=== PATIENT | female | born 1955 | race Caucasian/White ===

== ENCOUNTER 2020-05-08 11:28 | Inpatient (IN) | payer MEDICARE ==
[2020-05-08] MEDS ORDERED: Ondansetron 4 MG/2 ML SDV IVPUSH ONE (11:52)
[2020-05-08] MEDS ORDERED: Ketorolac 30 MG/ML SDV IVPUSH ONE (11:52)
[2020-05-08] MEDS ORDERED: Morphine 2 MG/ML SYRINGE IVPUSH ONE ×2 (11:52→15:26)
[2020-05-08] MEDS ORDERED: Sodium Chloride 0.9% 1,000 ML IV SCH (12:00)
[2020-05-08] MEDS ORDERED: Iopamidol 755 Mg/ML 100 ML Bottle IV ONE (13:33)
--- NOTE | 2020-05-08 14:01 | CR ---
INDICATION: Cough, dyspnea. CHEST ONE VIEW: Portable AP upright view of the chest was obtained 05/08/20 - no comparisons. The heart was unremarkable in appearance. The aorta is slightly tortuous. Overlying EKG leads are noted. A definite active infiltrate or effusion was not identified. IMPRESSION: No acute process. The report was given by phone to Dr. Sawyer soon after the examination was completed. [facility]
[2020-05-08] MEDS ORDERED: Ketorolac 30 MG/ML SDV IVPUSH STA (15:26)
[2020-05-08] MEDS: Sodium Chloride 0.9% 10 ML Syringe FLUSH PRN ×2 (15:49→15:57)
[2020-05-08] MEDS ORDERED: metroNIDAZOLE/Normal Saline 500 MG in Premix Bag 1 BAG IV ONE (16:12)
[2020-05-08] MEDS ORDERED: Ciprofloxacin in D5W 400 MG in Premix Bag 1 BAG IV ONE ×2 (16:12)
--- NOTE | 2020-05-08 17:19 | CT ---
INDICATION: Left lower quadrant abdominal and suprapubic pain. CT ABDOMEN AND PELVIS WITH CONTRAST: Spiral 3.75 mm axial sections were obtained through the abdomen and pelvis with 87 cc Isovue-370 at 2 cc per second with 100 second delay 05/08/20 - no comparisons. Total exam DLP was 818.83 mGy.cm. The lower lung huang and pleural spaces visualized showed evidence of emphysematous changes, but no definite active infiltrate or effusion, or mass lesions. The heart appeared normal in size. No pericardial effusion was seen. The liver appeared normal. Clips compatible with cholecystectomy are noted. Common bile duct was dilated as expected for post-cholecystectomy patient, but most likely normal. Adrenal glands and kidneys appeared essentially normal except for a probable tiny cyst in the medial upper pole cortex of the right kidney, although the lesion is too small to be definitive as to its nature. The spleen and for the most part the pancreas appear to be normal. There were, however, some calcification in the area of the pancreatic head and body which could be on the basis of previous pancreatitis and should be correlated clinically. No definite retroperitoneal mass was seen. Calcifications were noted in the abdominal aorta, superior mesenteric artery, iliac and left femoral arteries. The uterus is absent compatible with history of its removal. The appendix appeared normal in caliber visualized on coronal images 47 through 59 and did show a tiny appendicolith within its distal aspect. No evidence of free air was identified. There are multiple loops of dilated jejunum in the left upper quadrant with at least one loop of more distal small bowel - proximal ileum or distal jejunum in the right mid abdomen. At the distal portion of at least one of the loops of jejunum there is an appearance of thickening of the wall of the bowel raising question of an inflammatory process. There are a few additional loops of thick walled small bowel in the lower mid abdomen - upper pelvis raising question of an inflammatory process or other etiology. A process such as Crohn's disease would be a consideration as this appears to be skipping areas of the bowel. The colon showed no evidence of an obstructive process with stool including in the area of the rectosigmoid and rectum. A moderate dextroconcave scoliosis of the lumbar spine is noted. Severe degenerative disk disease and moderate to moderately severe hypertrophic degenerative changes are noted at L2-3, L3-4, with partial fusions of the L1-2 vertebral bodies, and relative kyphosis centered at the L1-2 level. No additional mass lesions, organomegaly, or free fluid collections were identified in the abdomen or pelvis. IMPRESSION: 1. Dilated loops of jejunum and possibly up to the level of proximal ileum with thickened wall bowel loops involving the small bowel extending into the mid abdomen - upper mid pelvis with the most dilated loops of small bowel in the jejunal area in the left upper quadrant . Significant thickening of the wall of a loop of bowel in the upper mid pelvis is noted. The more distal bowel appears relatively normal in caliber with gas and stool throughout the colon. A process such as gastroenteritis of severe nature or possibly Crohn's disease would be considerations. The possibility of an early mechanical obstruction or partial mechanical obstruction is difficult to entirely exclude at the level of the mid to distal small bowel. Barium study may be helpful for further evaluation depending upon clinical correlation. 2. Post cholecystectomy. 3. Scoliosis. 4. Degenerative changes and disk disease upper middle lumbar spine. 5. ASD. Report was called to Dr. Sawyer at 1455 hours. [facility]
[2020-05-08] MEDS ORDERED: Ondansetron 4 MG/2 ML SDV IV PRN (18:29)
[2020-05-08] MEDS ORDERED: metroNIDAZOLE/Normal Saline 500 MG in Premix Bag 1 BAG IV SCH (18:45)
[2020-05-08] MEDS ORDERED: Ciprofloxacin in D5W 400 MG in Premix Bag 1 BAG IV SCH ×4 (19:00)
[2020-05-08] MEDS ORDERED: Nitroglycerin 0.4 MG Tab.SL SL PRN (21:29)
[2020-05-08] MEDS ORDERED: Cyclobenzaprine 10 MG Tab PO PRN (21:29)
[2020-05-08] MEDS: Sodium Chloride 0.9% 1,000 ML IV SCH (21:29)
[2020-05-08] MEDS ORDERED: Mirtazapine 30 MG Tab PO SCH (22:15)
[2020-05-08] MEDS: atorvaSTATin 10 MG Tab PO SCH (22:48)
[2020-05-08] MEDS: ClonazePAM 0.5 MG Tab PO SCH (22:49)
[2020-05-08] MEDS: carBAMazepine 200 MG Tab PO SCH (23:05)
[2020-05-08] MEDS ORDERED: Nicotine 14 MG/24 Hr Patch TRDERM SCH (23:15)
[2020-05-09] MEDS: traZODone 100 MG Tab PO SCH ×2 (00:07→20:45)
[2020-05-09] MEDS: metroNIDAZOLE/Normal Saline 500 MG in Premix Bag 1 BAG IV SCH ×3 (01:35→17:03)
[2020-05-09] MEDS: Morphine 2 MG/ML SYRINGE IVPUSH PRN ×2 (05:38→13:08)
[2020-05-09] MEDS: Sodium Chloride 0.9% 1,000 ML IV SCH ×2 (05:58→16:15)
[2020-05-09] MEDS: Ciprofloxacin in D5W 400 MG in Premix Bag 1 BAG IV SCH ×4 (05:59→18:07)
--- NOTE | 2020-05-09 08:08 | PCM.HP.2 ---
H&P History of Present Illness - General Date of Service: 05/09/20 Admit Problem/Dx: Admission Diagnosis/Problem Admission Diagnosis/Problem Abdominal pain Source of Information: Patient History Limitations: Reports: No Limitations - History of Present Illness Initial Comments - Free Text/Narative: Christal is a 65-year-old female who complains of severe left quadrant abdominal pain. The symptoms are gone on for several days but worse in the last 2. Associated with the diarrhea and vomiting initially. She has no fever or urinary symptoms. She has a history of tobacco abuse,Mental illness,but otherwise previously healthy. Surgically, she sat cholecystectomy, 2 hernia repairs in the previous small bowel obstruction. She had a colonoscopy several years ago that showed polyps that were benign. Abdominal privy to that report. Middle Abdominal Pain Score (Numeric/FACES): 5 low mid back, chronic Pain Score (Numeric/FACES): 5 - Related Data Allergies/Adverse Reactions: Allergies Allergy/AdvReac Type Severity Reaction Status Date / Time Penicillins Allergy Swollen Verified 05/08/20 11:47 Tongue Home Medications: Home Meds ClonazePAM [KlonoPIN] 0.5 mg PO BEDTIME 05/08/20 [History] Cyclobenzaprine [Flexeril] 10 mg PO TID PRN 05/08/20 [History] Mirtazapine 45 mg PO BEDTIME 05/08/20 [History] Nitroglycerin 0.4 mg SL ASDIRECTED PRN 05/08/20 [History] Umeclidinium Arcadia [Incruse Ellipta*] 62.5 mcg IH DAILY 05/08/20 [History] atorvaSTATin [Lipitor] 5 mg PO BEDTIME 05/08/20 [History] carBAMazepine [Carbamazepine] 600 mg PO BEDTIME 05/08/20 [History] traZODone 100 mg PO BEDTIME 05/08/20 [History] Albuterol [Ventolin HFA] 2 puff PO Q6H PRN 05/09/20 [History] Fluticasone Propionate [Flonase] 2 spray NASBOTH DAILY 05/09/20 [History] Levothyroxine 150 mcg PO MOTUWETHFRSA 05/09/20 [History] Past Medical History HEENT History: Reports: Impaired Vision Other HEENT History: glasses Cardiovascular History: Reports: High Cholesterol Respiratory History: Reports: Asthma, Bronchitis, Recurrent, COPD Gastrointestinal History: Reports: Bowel Obstruction, Cholelithiasis, GERD Other Gastrointestinal History: pancreatitis MANAGER CONFIGURATION History: Reports: Other OB/BYN History: Musculoskeletal History: Reports: Arthritis, Fibromyalgia, Other (See Below) Other Musculoskeletal History: DJD Other Psychiatric History: hx of bipolar, cont on what she refers to her psych meds at . Endocrine/Metabolic History: Reports: Hypothyroidism - Infectious Disease History Infectious Disease History: Reports: Chicken Pox Other Infectious Disease History: SHINGLES VACCINATION 2019 AT [facility] - Past Surgical History HEENT Surgical History: Reports: Tonsillectomy Respiratory Surgical History: Reports: None GI Surgical History: Reports: Cholecystectomy, Hernia, Abdominal Other GI Surgeries/Procedures: blockage removed Female Surgical History: Reports: Section Musculoskeletal Surgical History: Reports: None Dermatological Surgical History: Reports: None Social & Family History - Tobacco Use Tobacco Use Status *Q: Current Every Day Tobacco User Years of Tobacco use: 25 Packs/Tins Daily: 1.5 Used Tobacco, but Quit: No Second Hand Smoke Exposure: Yes - Caffeine Use Caffeine Use: Reports: Coffee, Soda - Recreational Drug Use Recreational Drug Use: No H&P Review of Systems - Review of Systems: Review Of Systems: Comprehensive ROS is negative, except as noted in HPI. Exam - Exam Exam: See Below - Vital Signs Vital Signs: Last Vital Signs Temp 98.1 F 05/09/20 05:00 Pulse 76 05/09/20 05:00 Resp 20 05/09/20 05:00 BP 120/50 L 05/09/20 05:00 Pulse Ox 91 L 05/09/20 05:00 Weight: 74.616 kg - Exam General: Alert, Oriented, 4 HEENT: PERRLA, Hearing Intact, Mucosa Moist & [place], Nares Patent, Normal Nasal Septum, Posterior Pharynx Clear, Conjunctiva Clear, EOMI, EACs Clear, TMs Clear Neck: Supple, Trachea Midline, 2 Lungs: Clear to Auscultation, Normal Respiratory Effort Cardiovascular: Regular Rate GI/Abdominal Exam: Soft, Tender (Female) Exam: Deferred Rectal (Female) Exam: Deferred Back Exam: Normal Inspection, Full Range of Motion, NT Extremities: Normal Inspection, Normal Range of Motion, Non-Tender, No Pedal Edema, Normal Capillary Refill Skin: Warm, Dry, Intact Neurological: Cranial Nerves Intact, Reflexes Equal Bilateral Neuro Extensive - Mental Status: Alert, Oriented x3, Normal Mood/Affect, Normal Cognition Neuro Extensive - Motor, Sensory, Reflexes: CN II-XII Intact, Normal Gait, Normal Reflexes Psychiatric: Alert, Normal Affect, Normal Mood - Patient Data Lab Results Last 24 hrs: Laboratory Results - last 24 hr 05/08/20 05/08/20 05/08/20 Range/Units 12:15 12:15 12:15 WBC 18.1 H (3.0-10.3) x10-3/uL RBC 5.44 H (3.60-5.20) x10(6)uL Hgb 16.4 H (11.4-15.5) g/dL Hct 49.9 H (34.2-48.2) % MCV 91.7 (76.7-100.5) fL MCH 30.1 (23.9-33.9) pg MCHC 32.8 (31.9-34.8) g/dL RDW 13.2 (12.3-16.5) % Plt Count 244 (151-488) x10(3)uL MPV 7.6 (7.1-12.4) fL Neut % (Auto) (30.8-76.2) % Lymph % (Auto) (18.4-52.1) % [place] % (Auto) (4.4-15.7) % Eos % (Auto) (0.6-8.1) % Baso % (Auto) (0.2-1.5) % Neut # (Auto) (1.5-6.3) x10-3/uL Lymph # (Auto) (1.0-4.4) x10-3/uL [place] # (Auto) (0.3-1.0) x10-3/uL Eos # (Auto) (0.0-0.8) x10-3/uL Baso # (Auto) (0.0-0.1) x10-3/uL Add Manual Diff Yes Neutrophils % (Manual) 77 (46-82) % Band Neutrophils % 5 (0-6) % Lymphocytes % (Manual) 14 (13-37) % Monocytes % (Manual) 4 (4-12) % Sodium 134 L (135-145) mmol/L Potassium 4.1 (3.5-5.3) mmol/L Chloride 96 L (100-110) mmol/L Carbon Dioxide 25 (21-32) mmol/L BUN 12 (7-18) mg/dL Creatinine 0.8 (0.55-1.02) mg/dL Est Cr Clr Drug Dosing 68.18 mL/min Estimated GFR (MDRD) > 60 (>60) BUN/Creatinine Ratio 15.0 (9-20) Glucose 119 H (80-116) mg/dL Lactic Acid (0.4-2.0) mmol/L Calcium 9.3 (8.6-10.2) mg/dL Total Bilirubin 0.4 (0.1-1.3) mg/dL AST 28 H (5-25) IU/L ALT 33 (12-36) U/L Alkaline Phosphatase 146 H (56-112) IU/L Troponin I 5.7 (4.0-60.3) pg/mL Total Protein 8.0 (6.0-8.0) g/dL Albumin 4.1 (3.2-4.6) g/dL Globulin 3.9 g/dL Albumin/Globulin Ratio 1.1 Amylase 55 (25-115) U/L Lipase 88 (73-393) U/L Urine Color (YELLOW) Urine Appearance (CLEAR) Urine pH (5.0-6.5) Ur Specific [place] (1.010-1.025) Urine Protein (NEGATIVE) mg/dL Urine Glucose (UA) (NORMAL) mg/dL Urine Ketones (NEGATIVE) mg/dL Urine Occult Blood (NEGATIVE) Urine Nitrite (NEGATIVE) Urine Bilirubin (NEGATIVE) Urine Urobilinogen (NEGATIVE) mg/dL Ur Leukocyte Esterase (NEGATIVE) Urine RBC (0-5) Urine WBC (0-5) Ur Squamous Epith Cells (NS,R,O) Urine Bacteria (NS) SARS-CoV-2 RNA (MARY) (NEGATIVE) 05/08/20 05/08/20 05/08/20 Range/Units 12:20 16:30 16:30 WBC (3.0-10.3) x10-3/uL RBC (3.60-5.20) x10(6)uL Hgb (11.4-15.5) g/dL Hct (34.2-48.2) % MCV (76.7-100.5) fL MCH (23.9-33.9) pg MCHC (31.9-34.8) g/dL RDW (12.3-16.5) % Plt Count (151-488) x10(3)uL MPV (7.1-12.4) fL Neut % (Auto) (30.8-76.2) % Lymph % (Auto) (18.4-52.1) % [place] % (Auto) (4.4-15.7) % Eos % (Auto) (0.6-8.1) % Baso % (Auto) (0.2-1.5) % Neut # (Auto) (1.5-6.3) x10-3/uL Lymph # (Auto) (1.0-4.4) x10-3/uL [place] # (Auto) (0.3-1.0) x10-3/uL Eos # (Auto) (0.0-0.8) x10-3/uL Baso # (Auto) (0.0-0.1) x10-3/uL Add Manual Diff Neutrophils % (Manual) (46-82) % Band Neutrophils % (0-6) % Lymphocytes % (Manual) (13-37) % Monocytes % (Manual) (4-12) % Sodium (135-145) mmol/L Potassium (3.5-5.3) mmol/L Chloride (100-110) mmol/L Carbon Dioxide (21-32) mmol/L BUN (7-18) mg/dL Creatinine (0.55-1.02) mg/dL Est Cr Clr Drug Dosing mL/min Estimated GFR (MDRD) (>60) BUN/Creatinine Ratio (9-20) Glucose (80-116) mg/dL Lactic Acid 0.5 (0.4-2.0) mmol/L Calcium (8.6-10.2) mg/dL Total Bilirubin (0.1-1.3) mg/dL AST (5-25) IU/L ALT (12-36) U/L Alkaline Phosphatase (56-112) IU/L Troponin I (4.0-60.3) pg/mL Total Protein (6.0-8.0) g/dL Albumin (3.2-4.6) g/dL Globulin g/dL Albumin/Globulin Ratio Amylase (25-115) U/L Lipase (73-393) U/L Urine Color Yellow (YELLOW) Urine Appearance Slightly cloudy (CLEAR) Urine pH 5.0 (5.0-6.5) Ur Specific [place] 1.030 H (1.010-1.025) Urine Protein Negative (NEGATIVE) mg/dL Urine Glucose (UA) Normal (NORMAL) mg/dL Urine Ketones 50 H (NEGATIVE) mg/dL Urine Occult Blood Negative (NEGATIVE) Urine Nitrite Negative (NEGATIVE) Urine Bilirubin Small H (NEGATIVE) Urine Urobilinogen 1 H (NEGATIVE) mg/dL Ur Leukocyte Esterase Negative (NEGATIVE) Urine RBC 0-5 (0-5) Urine WBC 0-5 (0-5) Ur Squamous Epith Cells Few H (NS,R,O) Urine Bacteria Few H (NS) SARS-CoV-2 RNA (MARY) Negative (NEGATIVE) 05/09/20 05/09/20 Range/Units 06:30 06:30 WBC 6.5 (3.0-10.3) x10-3/uL RBC 4.21 (3.60-5.20) x10(6)uL Hgb 12.7 D (11.4-15.5) g/dL Hct 39.2 D (34.2-48.2) % MCV 93.0 (76.7-100.5) fL MCH 30.2 (23.9-33.9) pg MCHC 32.5 (31.9-34.8) g/dL RDW 13.3 (12.3-16.5) % Plt Count 228 (151-488) x10(3)uL MPV 7.3 (7.1-12.4) fL Neut % (Auto) 65.6 (30.8-76.2) % Lymph % (Auto) 25.9 (18.4-52.1) % [place] % (Auto) 5.7 (4.4-15.7) % Eos % (Auto) 1.7 (0.6-8.1) % Baso % (Auto) 1.1 (0.2-1.5) % Neut # (Auto) 4.3 (1.5-6.3) x10-3/uL Lymph # (Auto) 1.7 (1.0-4.4) x10-3/uL [place] # (Auto) 0.4 (0.3-1.0) x10-3/uL Eos # (Auto) 0.1 (0.0-0.8) x10-3/uL Baso # (Auto) 0.1 (0.0-0.1) x10-3/uL Add Manual Diff Neutrophils % (Manual) (46-82) % Band Neutrophils % (0-6) % Lymphocytes % (Manual) (13-37) % Monocytes % (Manual) (4-12) % Sodium 139 (135-145) mmol/L Potassium 3.5 (3.5-5.3) mmol/L Chloride 104 D (100-110) mmol/L Carbon Dioxide 25 (21-32) mmol/L BUN 9 (7-18) mg/dL Creatinine 0.6 (0.55-1.02) mg/dL Est Cr Clr Drug Dosing 90.90 mL/min Estimated GFR (MDRD) > 60 (>60) BUN/Creatinine Ratio 15.0 (9-20) Glucose 102 (80-116) mg/dL Lactic Acid (0.4-2.0) mmol/L Calcium 7.5 L (8.6-10.2) mg/dL Total Bilirubin (0.1-1.3) mg/dL AST (5-25) IU/L ALT (12-36) U/L Alkaline Phosphatase (56-112) IU/L Troponin I (4.0-60.3) pg/mL Total Protein (6.0-8.0) g/dL Albumin (3.2-4.6) g/dL Globulin g/dL Albumin/Globulin Ratio Amylase (25-115) U/L Lipase (73-393) U/L Urine Color (YELLOW) Urine Appearance (CLEAR) Urine pH (5.0-6.5) Ur Specific [place] (1.010-1.025) Urine Protein (NEGATIVE) mg/dL Urine Glucose (UA) (NORMAL) mg/dL Urine Ketones (NEGATIVE) mg/dL Urine Occult Blood (NEGATIVE) Urine Nitrite (NEGATIVE) Urine Bilirubin (NEGATIVE) Urine Urobilinogen (NEGATIVE) mg/dL Ur Leukocyte Esterase (NEGATIVE) Urine RBC (0-5) Urine WBC (0-5) Ur Squamous Epith Cells (NS,R,O) Urine Bacteria (NS) SARS-CoV-2 RNA (MARY) (NEGATIVE) Result Diagrams: 05/09/20 06:30 05/09/20 06:30 Stef Results Last 24 hrs: Microbiology 05/08/20 16:30 Anaerobic Blood Culture - Final Blood - Venous 05/08/20 16:35 Anaerobic Blood Culture - Final Blood - Venous - Lab Draw Sepsis Event Note - Evaluation Sepsis Screening Result: No Definite Risk - Focused Exam Vital Signs: Vital Signs Temp Pulse Resp BP Pulse Ox 05/09/20 05:00 98.1 F 76 20 120/50 L 91 L 05/09/20 00:00 98.2 F 72 20 114/55 L 90 L - Problem List (1) Abdominal pain SNOMED Code(s): 35043453 ICD Code: R10.9 - UNSPECIFIED ABDOMINAL PAIN Status: Acute Current Visit: Yes Qualifiers: Abdominal location: generalized Qualified Code(s): R10.84 - Generalized abdominal pain (2) Tobacco abuse SNOMED Code(s): 988084246 ICD Code: Z72.0 - TOBACCO USE Status: Acute Current Visit: Yes (3) HLD (hyperlipidemia) SNOMED Code(s): 87707196 ICD Code: E78.5 - HYPERLIPIDEMIA, UNSPECIFIED Status: Acute Current Visit: Yes Qualifiers: Hyperlipidemia type: unspecified Qualified Code(s): E78.5 - Hyperlipidemia, unspecified (4) Bipolar 2 disorder SNOMED Code(s): 11305645 ICD Code: F31.81 - BIPOLAR II DISORDER Status: Acute Current Visit: Yes (5) COPD (chronic obstructive pulmonary disease) SNOMED Code(s): 01875768 ICD Code: J44.9 - CHRONIC OBSTRUCTIVE PULMONARY DISEASE, UNSPECIFIED Status: Acute Current Visit: Yes Problem List Initiated/Reviewed/Updated: Yes Orders Last 24hrs: Active Orders 24 hr Category Date Time Status Patient Status [ADT] Routine ADT 05/08/20 18:29 Active Influenza Vaccine Charge [RC] .DISCHARGE Care 05/08/20 19:58 Active Oxygen Therapy [RC] PRN Care 05/08/20 18:29 Active Pulse Oximetry [RC] PRN Care 05/08/20 18:34 Active Up With Assistance [RC] ASDIRECTED Care 05/08/20 18:29 Active VTE/DVT Education [RC] Per Unit Routine Care 05/08/20 18:29 Active Vital Signs [RC] Q4H Care 05/08/20 18:29 Active Heart Healthy Diet [DIET] Diet 05/08/20 Dinner Ordered CULTURE BLOOD [BC] Urgent Lab 05/08/20 16:30 Results CULTURE BLOOD [BC] Urgent Lab 05/08/20 16:35 Results Ciprofloxacin in D5W [Cipro in D5W 400 MG/200 ML] 400 Med 05/09/20 06:30 Active mg Premix Bag 1 bag IV Q12H ClonazePAM [KlonoPIN] Med 05/08/20 22:15 Active 0.5 mg PO BEDTIME Cyclobenzaprine [Flexeril] Med 05/08/20 21:29 Active 10 mg PO TID PRN Levothyroxine Med 05/09/20 09:00 Active 150 mcg PO [id number]@0900 Mirtazapine [Remeron] Med 05/09/20 21:00 Active 45 mg PO BEDTIME Morphine Med 05/08/20 18:29 Active 2 mg IVPUSH Q2H PRN Nicotine [Habitrol] Med 05/09/20 21:00 Active 14 mg TRDERM BEDTIME Nitroglycerin [Nitrostat] Med 05/08/20 21:29 Active 0.4 mg SL ASDIRECTED PRN Ondansetron [Zofran] Med 05/08/20 18:29 Active 4 mg IV Q4H PRN Sodium Chloride 0.9% [Normal Saline] 1,000 ml Med 05/08/20 12:00 Active IV ASDIRECTED Sodium Chloride 0.9% [Normal Saline] 1,000 ml Med 05/08/20 18:30 Active IV ASDIRECTED Sodium Chloride 0.9% [Saline Flush] Med 05/08/20 11:50 Active 10 ml FLUSH ASDIRECTED PRN Tiotropium Arcadia [Spiriva Respimat] Med 05/09/20 09:00 Active 0 gm INH DAILY atorvaSTATin [Lipitor] Med 05/08/20 22:15 Active 5 mg PO BEDTIME carBAMazepine [TEGretol Tab] Med 05/08/20 22:15 Active 600 mg PO BEDTIME metroNIDAZOLE/Normal Saline [Flagyl 500 MG in NS 100 ML Med 05/09/20 01:00 Active ] 500 mg Premix Bag 1 bag IV Q8H traZODone Med 05/08/20 22:15 Active 100 mg PO BEDTIME Blood Culture x2 Reflex Set [OM.PC] Urgent Oth 05/08/20 16:12 Ordered Saline Lock Insert [OM.PC] Routine Oth 05/08/20 11:50 Ordered Sequential Compression Device [OM.PC] Per Unit Routine Oth 05/08/20 18:34 Ordered Resuscitation Status Routine Resus Stat 05/08/20 18:29 Ordered EKG 12 Lead [EK] Routine Ther 05/08/20 11:50 Ordered Medication Orders Atorvastatin Calcium (Lipitor) 5 mg PO BEDTIME REPLACED BY [facility] Last Admin: 05/08/20 22:48 Dose: 5 mg Documented by: CHENCHO Carbamazepine (Tegretol Tab) 600 mg PO BEDTIME REPLACED BY [facility] Last Admin: 05/08/20 23:05 Dose: 600 mg Documented by: CHENCHO Clonazepam (Klonopin) 0.5 mg PO BEDTIME REPLACED BY [facility] Last Admin: 05/08/20 22:49 Dose: 0.5 mg Documented by: CHENCHO Cyclobenzaprine HCl (Flexeril) 10 mg PO TID PRN PRN Reason: Pain Sodium Chloride (Normal Saline) 1,000 mls @ 999 mls/hr IV ASDIRECTED REPLACED BY [facility] Last Admin: 05/08/20 12:14 Dose: 999 mls/hr Documented by: BENEAMI Sodium Chloride (Normal Saline) 1,000 mls @ 125 mls/hr IV ASDIRECTED REPLACED BY [facility] Last Admin: 05/09/20 05:58 Dose: 125 mls/hr Documented by: Infusion: 05/09/20 05:29 Dose: 125 mls/hr Documented by: Admin: 05/08/20 21:29 Dose: 125 mls/hr Documented by: CHENCHO Ciprofloxacin/Dextrose 400 mg/ (Premix) 200 mls @ 200 mls/hr IV Q12H REPLACED BY [facility] Last Admin: 05/09/20 05:59 Dose: 200 mls/hr Documented by: CHENCHO Metronidazole 500 mg/ Premix 100 mls @ 100 mls/hr IV Q8H REPLACED BY [facility] Last Admin: 05/09/20 01:35 Dose: 100 mls/hr Documented by: CHENCHO Levothyroxine Sodium (Levothyroxine) 150 mcg PO [id number]@0900 REPLACED BY [facility] Mirtazapine (Remeron) 45 mg PO BEDTIME ROBERT Morphine Sulfate (Morphine) 2 mg IVPUSH Q2H PRN PRN Reason: Pain Last Admin: 05/09/20 05:38 Dose: 2 mg Documented by: CHENCHO Nicotine (Habitrol) 14 mg TRDERM BEDTIME ROBERT Nitroglycerin (Nitrostat) 0.4 mg SL ASDIRECTED PRN PRN Reason: Chest Pain Ondansetron HCl (Zofran) 4 mg IV Q4H PRN PRN Reason: Nausea/Vomiting Sodium Chloride (Saline Flush) 10 ml FLUSH ASDIRECTED PRN PRN Reason: Keep Vein Open Last Admin: 05/08/20 15:57 Dose: 10 ml Documented by: Admin: 05/08/20 15:49 Dose: 10 ml Documented by: TIN Tiotropium Arcadia (Spiriva Respimat) 0 gm INH DAILY ROBERT Trazodone HCl (Trazodone) 100 mg PO BEDTIME ROBERT Last Admin: 05/09/20 00:07 Dose: 100 mg Documented by: CHENCHO Assessment/Plan Comment:: Patient needed some morphine overnight. I will change it to Toradol as needed as place her to be nothing by mouth, and consult Dr. Breen for an opinion. Repeat some labs in
[2020-05-09] MEDS ORDERED: FLU VACC QS2020-21(6MOS UP)/PF 60 MCG/0.5 ML SYRINGE IM ONE (08:37)
[2020-05-09] MEDS: Tiotropium Bromide 4 GM Inhalation Spray (2.5mcg/1 dose; 10 doses) INH SCH (08:52)
[2020-05-09] MEDS: Levothyroxine 150 MCG Tab PO SCH (08:54)
--- NOTE | 2020-05-09 12:20 | EDM.PDOC ---
ED HPI GENERAL MEDICAL PROBLEM - General Chief Complaint: Abdominal Pain Time Seen by Provider: 05/08/20 11:35 Source of Information: Reports: Patient History Limitations: Reports: No Limitations - History of Present Illness INITIAL COMMENTS - FREE TEXT/NARRATIVE: Patient presented to the ED because of abdominal pain which started 2 days ago with associated N/V/D. The pain is sharp and cramping over the LLQ and suprapubic area. There is no fever/chills/cough or cold symptoms. She also c/o pleuritic pain and some dyspnea which is nothing more than ususal because of her COPD. Middle Abdominal Pain Score (Numeric/FACES): 5 low mid back, chronic Pain Score (Numeric/FACES): 5 ACROSS ALL ABDOMEN Pain Score (Numeric/FACES): 7 - Related Data Allergies Allergy/AdvReac Type Severity Reaction Status Date / Time Penicillins Allergy Swollen Verified 05/08/20 11:47 Tongue Home Meds: Home Meds ClonazePAM [KlonoPIN] 0.5 mg PO BEDTIME 05/08/20 [History] Cyclobenzaprine [Flexeril] 10 mg PO TID PRN 05/08/20 [History] Mirtazapine 45 mg PO BEDTIME 05/08/20 [History] Nitroglycerin 0.4 mg SL ASDIRECTED PRN 05/08/20 [History] Umeclidinium [place] [Incruse Ellipta*] 62.5 mcg IH DAILY 05/08/20 [History] atorvaSTATin [Lipitor] 5 mg PO BEDTIME 05/08/20 [History] carBAMazepine [Carbamazepine] 600 mg PO BEDTIME 05/08/20 [History] traZODone 100 mg PO BEDTIME 05/08/20 [History] Albuterol [Ventolin HFA] 2 puff PO Q6H PRN 05/09/20 [History] Fluticasone Propionate [Flonase] 2 spray NASBOTH DAILY 05/09/20 [History] Levothyroxine 150 mcg PO MOTUWETHFRSA 05/09/20 [History] Past Medical History HEENT History: Reports: Impaired Vision Other HEENT History: glasses Cardiovascular History: Reports: High Cholesterol Respiratory History: Reports: Asthma, Bronchitis, Recurrent, COPD Gastrointestinal History: Reports: Bowel Obstruction, Cholelithiasis, GERD Other Gastrointestinal History: pancreatitis [employer]END[employer] History: Reports: Other [employer] ATT[employer]ANT History: Musculoskeletal History: Reports: Arthritis, Fibromyalgia, Other (See Below) Other Musculoskeletal History: DJD Other Psychiatric History: hx of bipolar, cont on what she refers to her psych meds at . Endocrine/Metabolic History: Reports: Hypothyroidism - Infectious Disease History Infectious Disease History: Reports: Chicken Pox Other Infectious Disease History: SHINGLES VACCINATION 2019 AT [facility] - Past Surgical History HEENT Surgical History: Reports: Tonsillectomy Respiratory Surgical History: Reports: None GI Surgical History: Reports: Cholecystectomy, Hernia, Abdominal Other GI Surgeries/Procedures: blockage removed Female Surgical History: Reports: Section Musculoskeletal Surgical History: Reports: None Dermatological Surgical History: Reports: None Social & Family History - Tobacco Use Tobacco Use Status *Q: Current Every Day Tobacco User Years of Tobacco use: 25 Packs/Tins Daily: 1.5 Used Tobacco, but Quit: No Second Hand Smoke Exposure: Yes - Caffeine Use Caffeine Use: Reports: Coffee, Soda - Recreational Drug Use Recreational Drug Use: No ED ROS GENERAL - Review of Systems Review Of Systems: See Below Constitutional: Reports: No Symptoms HEENT: Reports: No Symptoms Respiratory: Reports: Shortness of Breath, Wheezing, Cough Cardiovascular: Reports: No Symptoms Endocrine: Reports: No Symptoms GI/Abdominal: Reports: Abdominal Pain, Nausea, Vomiting : Reports: No Symptoms, Discharge Musculoskeletal: Reports: No Symptoms, Neck Pain, Shoulder Pain Skin: Reports: No Symptoms, Cyanosis, Jaundice Neurological: Reports: No Symptoms, Confusion Psychiatric: Reports: No Symptoms, Agitation ED EXAM, GI/ABD - Physical Exam Exam: See Below Exam Limited By: No Limitations General Appearance: Alert, No Apparent Distress Ears: Normal External Exam, Normal Canal, Hearing Grossly Normal Nose: Normal Inspection, Normal Mucosa Throat/Mouth: Normal Inspection, Normal Lips, Normal Teeth Head: Atraumatic, Normocephalic Neck: Normal Inspection, Supple, Non-Tender, Full Range of Motion Respiratory/Chest: No Respiratory Distress, Lungs Clear, Normal Breath Sounds Cardiovascular: Normal Peripheral Pulses, Regular Rate, Rhythm, No Edema, No Gallop GI/Abdominal Exam: Soft, No Organomegaly, Other (tenderness over the LLQ and suprapubic area) Back Exam: Normal Inspection, Full Range of Motion Extremities: Normal Inspection, Normal Range of Motion Course - Vital Signs Text/Narrative:: Labs/EKG/CXR/CT abd-pelvis was discussed with patient NS 1 L bolus Toradol 15 mg IV Morphine 2 mg IV Zofran 4 mg IV Cipro 400 mg IV Flagyl 500 mg IV Last Recorded V/S: Last Vital Signs Temp 36.7 C 05/09/20 07:25 Pulse 81 05/09/20 07:25 Resp 18 05/09/20 07:25 BP 111/63 05/09/20 07:25 Pulse Ox 85 L 05/09/20 07:25 - Orders/Labs/Meds Orders: Active Orders 24 hr Category Date Time Status Patient Status [ADT] Routine ADT 05/08/20 18:29 Active Oxygen Therapy [RC] PRN Care 05/08/20 18:29 Active Pulse Oximetry [RC] PRN Care 05/08/20 18:34 Active Up With Assistance [RC] ASDIRECTED Care 05/08/20 18:29 Active VTE/DVT Education [RC] Per Unit Routine Care 05/08/20 18:29 Active Vital Signs [RC] Q4H Care 05/08/20 18:29 Active CULTURE BLOOD [BC] Urgent Lab 05/08/20 16:30 Results CULTURE BLOOD [BC] Urgent Lab 05/08/20 16:35 Results Ciprofloxacin in D5W [Cipro in D5W 400 MG/200 ML] 400 Med 05/09/20 06:30 Active mg Premix Bag 1 bag IV Q12H Morphine Med 05/08/20 18:29 Active 2 mg IVPUSH Q2H PRN Ondansetron [Zofran] Med 05/08/20 18:29 Active 4 mg IV Q4H PRN Sodium Chloride 0.9% [Normal Saline] 1,000 ml Med 05/08/20 12:00 Active IV ASDIRECTED Sodium Chloride 0.9% [Normal Saline] 1,000 ml Med 05/08/20 18:30 Active IV ASDIRECTED Sodium Chloride 0.9% [Saline Flush] Med 05/08/20 11:50 Active 10 ml FLUSH ASDIRECTED PRN Blood Culture x2 Reflex Set [OM.PC] Urgent Oth 05/08/20 16:12 Ordered Saline Lock Insert [OM.PC] Routine Oth 05/08/20 11:50 Ordered Sequential Compression Device [OM.PC] Per Unit Routine Oth 05/08/20 18:34 Ordered EKG 12 Lead [EK] Routine Ther 05/08/20 11:50 Ordered Medication Orders Atorvastatin Calcium (Lipitor) 5 mg PO BEDTIME [facility] Last Admin: 05/08/20 22:48 Dose: 5 mg Documented by: CHENCHO Carbamazepine (Tegretol Tab) 600 mg PO BEDTIME [facility] Last Admin: 05/08/20 23:05 Dose: 600 mg Documented by: CHENCHO Clonazepam (Klonopin) 0.5 mg PO BEDTIME [facility] Last Admin: 05/08/20 22:49 Dose: 0.5 mg Documented by: CHENCHO Cyclobenzaprine HCl (Flexeril) 10 mg PO TID PRN PRN Reason: Pain Sodium Chloride (Normal Saline) 1,000 mls @ 999 mls/hr IV ASDIRECTED [facility] Last Admin: 05/08/20 12:14 Dose: 999 mls/hr Documented by: STEFANIA Sodium Chloride (Normal Saline) 1,000 mls @ 125 mls/hr IV ASDIRECTED [facility] Last Admin: 05/09/20 05:58 Dose: 125 mls/hr Documented by: Infusion: 05/09/20 05:29 Dose: 125 mls/hr Documented by: Admin: 05/08/20 21:29 Dose: 125 mls/hr Documented by: CHENCHO Ciprofloxacin/Dextrose 400 mg/ (Premix) 200 mls @ 200 mls/hr IV Q12H [facility] Last Admin: 05/09/20 05:59 Dose: 200 mls/hr Documented by: CHENCHO Metronidazole 500 mg/ Premix 100 mls @ 100 mls/hr IV Q8H [facility] Last Admin: 05/09/20 08:43 Dose: 100 mls/hr Documented by: JOSE G Infusion: 05/09/20 02:35 Dose: 100 mls/hr Documented by: JOSE G Admin: 05/09/20 01:35 Dose: 100 mls/hr Documented by: CHENCHO Levothyroxine Sodium (Levothyroxine) 150 mcg PO [id number] [facility] Last Admin: 05/09/20 08:54 Dose: 150 mcg Documented by: JOSE G Mirtazapine (Remeron) 45 mg PO BEDTIME [facility] Morphine Sulfate (Morphine) 2 mg IVPUSH Q2H PRN PRN Reason: Pain Last Admin: 05/09/20 05:38 Dose: 2 mg Documented by: CHENCHO Nicotine (Habitrol) 14 mg TRDERM BEDTIME [facility] Nitroglycerin (Nitrostat) 0.4 mg SL ASDIRECTED PRN PRN Reason: Chest Pain Ondansetron HCl (Zofran) 4 mg IV Q4H PRN PRN Reason: Nausea/Vomiting Sodium Chloride (Saline Flush) 10 ml FLUSH ASDIRECTED PRN PRN Reason: Keep Vein Open Last Admin: 05/08/20 15:57 Dose: 10 ml Documented by: Admin: 05/08/20 15:49 Dose: 10 ml Documented by: TIN Tiotropium [place] (Spiriva Respimat) 0 gm INH DAILY [facility] Last Admin: 05/09/20 08:52 Dose: 4 gm Documented by: JOSE G Trazodone HCl (Trazodone) 100 mg PO BEDTIME [facility] Last Admin: 05/09/20 00:07 Dose: 100 mg Documented by: CHENCHO Labs: Laboratory Tests 05/08/20 05/08/20 05/08/20 Range/Units 12:15 12:15 12:15 WBC 18.1 H (3.0-10.3) x10-3/uL RBC 5.44 H (3.60-5.20) x10(6)uL Hgb 16.4 H (11.4-15.5) g/dL Hct 49.9 H (34.2-48.2) % MCV 91.7 (76.7-100.5) fL MCH 30.1 (23.9-33.9) pg MCHC 32.8 (31.9-34.8) g/dL RDW 13.2 (12.3-16.5) % Plt Count 244 (151-488) x10(3)uL MPV 7.6 (7.1-12.4) fL Add Manual Diff Yes Neutrophils % (Manual) 77 (46-82) % Band Neutrophils % 5 (0-6) % Lymphocytes % (Manual) 14 (13-37) % Monocytes % (Manual) 4 (4-12) % Sodium 134 L (135-145) mmol/L Potassium 4.1 (3.5-5.3) mmol/L Chloride 96 L (100-110) mmol/L Carbon Dioxide 25 (21-32) mmol/L BUN 12 (7-18) mg/dL Creatinine 0.8 (0.55-1.02) mg/dL Est Cr Clr Drug Dosing 68.18 mL/min Estimated GFR (MDRD) > 60 (>60) BUN/Creatinine Ratio 15.0 (9-20) Glucose 119 H (80-116) mg/dL Lactic Acid (0.4-2.0) mmol/L Calcium 9.3 (8.6-10.2) mg/dL Total Bilirubin 0.4 (0.1-1.3) mg/dL AST 28 H (5-25) IU/L ALT 33 (12-36) U/L Alkaline Phosphatase 146 H (56-112) IU/L Troponin I 5.7 (4.0-60.3) pg/mL Total Protein 8.0 (6.0-8.0) g/dL Albumin 4.1 (3.2-4.6) g/dL Globulin 3.9 g/dL Albumin/Globulin Ratio 1.1 Amylase 55 (25-115) U/L Lipase 88 (73-393) U/L Urine Color (YELLOW) Urine Appearance (CLEAR) Urine pH (5.0-6.5) Ur Specific [place] (1.010-1.025) Urine Protein (NEGATIVE) mg/dL Urine Glucose (UA) (NORMAL) mg/dL Urine Ketones (NEGATIVE) mg/dL Urine Occult Blood (NEGATIVE) Urine Nitrite (NEGATIVE) Urine Bilirubin (NEGATIVE) Urine Urobilinogen (NEGATIVE) mg/dL Ur Leukocyte Esterase (NEGATIVE) Urine RBC (0-5) Urine WBC (0-5) Ur Squamous Epith Cells (NS,R,O) Urine Bacteria (NS) SARS-CoV-2 RNA (MARY) (NEGATIVE) 05/08/20 05/08/20 05/08/20 Range/Units 12:20 16:30 16:30 WBC (3.0-10.3) x10-3/uL RBC (3.60-5.20) x10(6)uL Hgb (11.4-15.5) g/dL Hct (34.2-48.2) % MCV (76.7-100.5) fL MCH (23.9-33.9) pg MCHC (31.9-34.8) g/dL RDW (12.3-16.5) % Plt Count (151-488) x10(3)uL MPV (7.1-12.4) fL Add Manual Diff Neutrophils % (Manual) (46-82) % Band Neutrophils % (0-6) % Lymphocytes % (Manual) (13-37) % Monocytes % (Manual) (4-12) % Sodium (135-145) mmol/L Potassium (3.5-5.3) mmol/L Chloride (100-110) mmol/L Carbon Dioxide (21-32) mmol/L BUN (7-18) mg/dL Creatinine (0.55-1.02) mg/dL Est Cr Clr Drug Dosing mL/min Estimated GFR (MDRD) (>60) BUN/Creatinine Ratio (9-20) Glucose (80-116) mg/dL Lactic Acid 0.5 (0.4-2.0) mmol/L Calcium (8.6-10.2) mg/dL Total Bilirubin (0.1-1.3) mg/dL AST (5-25) IU/L ALT (12-36) U/L Alkaline Phosphatase (56-112) IU/L Troponin I (4.0-60.3) pg/mL Total Protein (6.0-8.0) g/dL Albumin (3.2-4.6) g/dL Globulin g/dL Albumin/Globulin Ratio Amylase (25-115) U/L Lipase (73-393) U/L Urine Color Yellow (YELLOW) Urine Appearance Slightly cloudy (CLEAR) Urine pH 5.0 (5.0-6.5) Ur Specific [place] 1.030 H (1.010-1.025) Urine Protein Negative (NEGATIVE) mg/dL Urine Glucose (UA) Normal (NORMAL) mg/dL Urine Ketones 50 H (NEGATIVE) mg/dL Urine Occult Blood Negative (NEGATIVE) Urine Nitrite Negative (NEGATIVE) Urine Bilirubin Small H (NEGATIVE) Urine Urobilinogen 1 H (NEGATIVE) mg/dL Ur Leukocyte Esterase Negative (NEGATIVE) Urine RBC 0-5 (0-5) Urine WBC 0-5 (0-5) Ur Squamous Epith Cells Few H (NS,R,O) Urine Bacteria Few H (NS) SARS-CoV-2 RNA (MARY) Negative (NEGATIVE) Meds: Medications Generic Name Dose Route Start Last Admin Trade Name Freq PRN Reason Stop Dose Admin Atorvastatin Calcium 5 mg 05/08/20 22:15 05/08/20 22:48 Lipitor PO 5 mg BEDTIME ROBERT Administration Carbamazepine 600 mg 05/08/20 22:15 05/08/20 23:05 Tegretol Tab PO 600 mg BEDTIME ROBERT Administration Clonazepam 0.5 mg 05/08/20 22:15 05/08/20 22:49 Klonopin PO 0.5 mg BEDTIME ROBERT Administration Cyclobenzaprine HCl 10 mg 05/08/20 21:29 Flexeril PO TID PRN Pain Sodium Chloride 1,000 mls @ 999 mls/hr 05/08/20 12:00 05/08/20 12:14 Normal Saline IV 999 mls/hr ASDIRECTED ROBERT Administration Sodium Chloride 1,000 mls @ 125 mls/hr 05/08/20 18:30 05/09/20 05:58 Normal Saline IV 125 mls/hr ASDIRECTED ROBERT Administration Ciprofloxacin/Dextrose 400 mg/ 200 mls @ 200 mls/hr 05/09/20 06:30 05/09/20 05:59 Premix IV 200 mls/hr Q12H ROBERT Administration Metronidazole 500 mg/ Premix 100 mls @ 100 mls/hr 05/09/20 01:00 05/09/20 08:43 IV 100 mls/hr Q8H ROBERT Administration Levothyroxine Sodium 150 mcg 05/09/20 09:00 05/09/20 08:54 Levothyroxine PO 150 mcg [id number] ROBERT Administration Mirtazapine 45 mg 05/09/20 21:00 Remeron PO BEDTIME ROBERT Morphine Sulfate 2 mg 05/08/20 18:29 05/09/20 05:38 Morphine IVPUSH 2 mg Q2H PRN Administration Pain Nicotine 14 mg 05/09/20 21:00 Habitrol TRDERM BEDTIME ROBERT Nitroglycerin 0.4 mg 05/08/20 21:29 Nitrostat SL ASDIRECTED PRN Chest Pain Ondansetron HCl 4 mg 05/08/20 18:29 Zofran IV Q4H PRN Nausea/Vomiting Sodium Chloride 10 ml 05/08/20 11:50 05/08/20 15:57 Saline Flush FLUSH 10 ml ASDIRECTED PRN Administration Keep Vein Open Tiotropium [place] 0 gm 05/09/20 09:00 05/09/20 08:52 Spiriva Respimat INH 4 gm DAILY ROBERT Administration Trazodone HCl 100 mg 05/08/20 22:15 05/09/20 00:07 Trazodone PO 100 mg BEDTIME [facility]ERT Administration Discontinued Medications Generic Name Dose Route Start Last Admin Trade Name Freq PRN Reason Stop Dose Admin Metronidazole 500 mg/ Premix 100 mls @ 100 mls/hr 05/08/20 16:12 05/08/20 17:05 IV 05/08/20 17:11 100 mls/hr ONETIME ONE Administration Ciprofloxacin/Dextrose 400 mg/ 200 mls @ 200 mls/hr 05/08/20 16:12 05/08/20 18:31 Premix IV 05/08/20 17:11 200 mls/hr ONETIME ONE Administration Ciprofloxacin/Dextrose 400 mg/ 200 mls @ 200 mls/hr 05/08/20 19:00 Premix IV Q12H ROBERT Metronidazole 500 mg/ Premix 100 mls @ 100 mls/hr 05/08/20 18:45 05/08/20 21:26 IV Not Given Q8H ROBERT Ciprofloxacin/Dextrose 400 mg/ 200 mls @ 200 mls/hr 05/08/20 19:00 Premix IV Q12H ROBERT Influenza Virus Vaccine 1 each 05/08/20 19:58 Pharmacy To Dose - Influenza Vaccine IM 05/08/20 19:59 ONETIME ONE Influenza Virus Vaccine 60 mcg 05/08/20 21:00 05/09/20 08:50 Fluad Quad Syringe IM 05/08/20 21:01 Not Given .ONCE ONE Influenza Virus Vaccine Confirm 05/09/20 08:37 05/09/20 08:47 Fluzone Quad Syringe Administered 05/09/20 08:38 60 mcg Dose Administration 60 mcg IM .STK-MED ONE Iopamidol 100 ml 05/08/20 13:33 05/08/20 14:26 Isovue-370 (76%) IV 05/08/20 13:34 85 ml ONETIME ONE Administration Ketorolac Tromethamine 30 mg 05/08/20 11:52 05/08/20 12:12 Toradol IVPUSH 05/08/20 11:53 30 mg ONETIME ONE Administration Ketorolac Tromethamine 15 mg 05/08/20 15:26 05/08/20 15:49 Toradol IVPUSH 05/08/20 15:27 15 mg NOW STA Administration Mirtazapine 45 mg 05/08/20 22:15 05/08/20 22:49 Remeron PO 45 mg BEDTIME ROBERT Administration Morphine Sulfate 2 mg 05/08/20 11:52 05/08/20 12:13 Morphine IVPUSH 05/08/20 11:53 2 mg ONETIME ONE Administration Morphine Sulfate 2 mg 05/08/20 15:26 05/08/20 15:57 Morphine IVPUSH 05/08/20 15:27 2 mg ONETIME ONE Administration Nicotine 14 mg 05/08/20 23:15 05/08/20 23:39 Habitrol TRDERM 14 mg DAILY ROBERT Administration Ondansetron HCl 4 mg 05/08/20 11:52 05/08/20 12:14 Zofran IVPUSH 05/08/20 11:53 4 mg ONETIME ONE Administration Departure - Departure Time of Disposition: 16:00 Disposition: Admitted As Inpatient 66 Condition: Good Clinical Impression: Colitis, Gastroenteritis - Discharge Information Sepsis Event Note (ED) - Evaluation Sepsis Screening Result: No Definite Risk - My Orders Last 24 Hours: My Active Orders 05/08/20 11:50 Sodium Chloride 0.9% [Saline Flush] 10 ml FLUSH ASDIRECTED PRN Saline Lock Insert [OM.PC] Routine EKG 12 Lead [EK] Routine 05/08/20 12:00 Sodium Chloride 0.9% [Normal Saline] 1,000 ml IV ASDIRECTED 05/08/20 16:12 Blood Culture x2 Reflex Set [OM.PC] Urgent 05/08/20 16:30 CULTURE BLOOD [BC] Urgent 05/08/20 16:35 CULTURE BLOOD [BC] Urgent 05/08/20 18:29 Patient Status [ADT] Routine Oxygen Therapy [RC] PRN Up With Assistance [RC] ASDIRECTED VTE/DVT Education [RC] Per Unit Routine Vital Signs [RC] Q4H Morphine 2 mg IVPUSH Q2H PRN Ondansetron [Zofran] 4 mg IV Q4H PRN 05/08/20 18:30 Sodium Chloride 0.9% [Normal Saline] 1,000 ml IV ASDIRECTED 05/08/20 18:34 Pulse Oximetry [RC] PRN Sequential Compression Device [OM.PC] Per Unit Routine 05/09/20 06:30 Ciprofloxacin in D5W [Cipro in D5W 400 MG/200 ML] 400 mg Premix Bag 1 bag IV Q12H - Assessment/Plan Last 24 Hours: My Active Orders 05/08/20 11:50 Sodium Chloride 0.9% [Saline Flush] 10 ml FLUSH ASDIRECTED PRN Saline Lock Insert [OM.PC] Routine EKG 12 Lead [EK] Routine 05/08/20 12:00 Sodium Chloride 0.9% [Normal Saline] 1,000 ml IV ASDIRECTED 05/08/20 16:12 Blood Culture x2 Reflex Set [OM.PC] Urgent 05/08/20 16:30 CULTURE BLOOD [BC] Urgent 05/08/20 16:35 CULTURE BLOOD [BC] Urgent 05/08/20 18:29 Patient Status [ADT] Routine Oxygen Therapy [RC] PRN Up With Assistance [RC] ASDIRECTED VTE/DVT Education [RC] Per Unit Routine Vital Signs [RC] Q4H Morphine 2 mg IVPUSH Q2H PRN Ondansetron [Zofran] 4 mg IV Q4H PRN 05/08/20 18:30 Sodium Chloride 0.9% [Normal Saline] 1,000 ml IV ASDIRECTED 05/08/20 18:34 Pulse Oximetry [RC] PRN Sequential Compression Device [OM.PC] Per Unit Routine 05/09/20 06:30 Ciprofloxacin in D5W [Cipro in D5W 400 MG/200 ML] 400 mg Premix Bag 1 bag IV Q12H
[2020-05-09] MEDS: Ketorolac 15 MG/ML SDV IVPUSH PRN (18:14)
[2020-05-09] MEDS: carBAMazepine 200 MG Tab PO SCH (20:44)
[2020-05-09] MEDS: atorvaSTATin 10 MG Tab PO SCH (20:46)
[2020-05-09] MEDS: ClonazePAM 0.5 MG Tab PO SCH (20:53)
[2020-05-09] MEDS ORDERED: Mirtazapine 15 MG Tab PO SCH (21:00)
[2020-05-09] MEDS ORDERED: Nicotine 14 MG/24 Hr Patch TRDERM SCH (21:00)
[2020-05-10] MEDS: metroNIDAZOLE/Normal Saline 500 MG in Premix Bag 1 BAG IV SCH ×2 (00:52→09:16)
[2020-05-10] MEDS: Sodium Chloride 0.9% 10 ML Syringe FLUSH PRN (01:30)
[2020-05-10] MEDS: Ketorolac 15 MG/ML SDV IVPUSH PRN (01:31)
[2020-05-10] MEDS: Sodium Chloride 0.9% 1,000 ML IV SCH (03:44)
[2020-05-10] MEDS: Ciprofloxacin in D5W 400 MG in Premix Bag 1 BAG IV SCH ×2 (06:30)
[2020-05-10] MEDS: Tiotropium Bromide 4 GM Inhalation Spray (2.5mcg/1 dose; 10 doses) INH SCH (08:28)
[2020-05-10] MEDS: Levothyroxine 150 MCG Tab PO SCH (08:30)
--- NOTE | 2020-05-10 09:18 | PCM.SURGPN ---
- General Info Date of Service: 05/10/20 Functional Status: Reports: Other (Pain improved although still some moderate abdominal pain) - Review of Systems Pulmonary: Reports: No Symptoms Gastrointestinal: Reports: Flatus, Other (Had BM this am) Genitourinary: Reports: No Symptoms - Patient Data Vitals - Most Recent: Last Vital Signs Temp 97.6 F 05/10/20 03:42 Pulse 76 05/10/20 03:42 Resp 18 05/10/20 03:42 BP 112/62 05/10/20 03:42 Pulse Ox 89 L 05/10/20 03:42 Weight - Most Recent: 164 lb 8 oz I&O - Last 24 Hours: Intake & Output 05/09/20 05/10/20 05/10/20 22:59 06:59 14:59 Intake Total 1860 1181 Balance 1860 1181 Lab Results Last 24 Hrs: Laboratory Results - last 24 hr 05/10/20 05/10/20 Range/Units 06:45 06:45 WBC 5.7 (3.0-10.3) x10-3/uL RBC 4.04 (3.60-5.20) x10(6)uL Hgb 12.4 (11.4-15.5) g/dL Hct 37.4 (34.2-48.2) % MCV 92.5 (76.7-100.5) fL MCH 30.6 (23.9-33.9) pg MCHC 33.1 (31.9-34.8) g/dL RDW 13.2 (12.3-16.5) % Plt Count 204 (151-488) x10(3)uL MPV 6.9 L (7.1-12.4) fL Neut % (Auto) 75.7 (30.8-76.2) % Lymph % (Auto) 15.6 L (18.4-52.1) % Sanborn % (Auto) 6.4 (4.4-15.7) % Eos % (Auto) 1.8 (0.6-8.1) % Baso % (Auto) 0.5 (0.2-1.5) % Neut # (Auto) 4.3 (1.5-6.3) x10-3/uL Lymph # (Auto) 0.9 L (1.0-4.4) x10-3/uL Sanborn # (Auto) 0.4 (0.3-1.0) x10-3/uL Eos # (Auto) 0.1 (0.0-0.8) x10-3/uL Baso # (Auto) 0.0 (0.0-0.1) x10-3/uL Sodium 140 (135-145) mmol/L Potassium 3.6 (3.5-5.3) mmol/L Chloride 105 (100-110) mmol/L Carbon Dioxide 25 (21-32) mmol/L BUN 7 (7-18) mg/dL Creatinine 0.6 (0.55-1.02) mg/dL Est Cr Clr Drug Dosing 90.90 mL/min Estimated GFR (MDRD) > 60 (>60) BUN/Creatinine Ratio 11.7 (9-20) Glucose 99 (80-116) mg/dL Calcium 7.6 L (8.6-10.2) mg/dL Stef Results Last 24 Hrs: Microbiology 05/08/20 16:30 Aerobic Blood Culture - Preliminary Blood - Venous NO GROWTH AFTER 1 DAY Anaerobic Blood Culture - Final 05/08/20 16:35 Aerobic Blood Culture - Preliminary Blood - Venous - Lab Draw NO GROWTH AFTER 1 DAY Anaerobic Blood Culture - Final Med Orders - Current: Current Medications Atorvastatin Calcium (Lipitor) 5 mg PO BEDTIME [facility] Last Admin: 05/09/20 20:46 Dose: 5 mg Documented by: Carbamazepine (Tegretol Tab) 600 mg PO BEDTIME [facility] Last Admin: 05/09/20 20:44 Dose: 600 mg Documented by: Clonazepam (Klonopin) 0.5 mg PO BEDTIME [facility] Last Admin: 05/09/20 20:53 Dose: 0.5 mg Documented by: Cyclobenzaprine HCl (Flexeril) 10 mg PO TID PRN PRN Reason: Pain Last Admin: 05/10/20 08:37 Dose: 10 mg Documented by: Sodium Chloride (Normal Saline) 1,000 mls @ 999 mls/hr IV ASDIRECTED [facility] Last Admin: 05/08/20 12:14 Dose: 999 mls/hr Documented by: Sodium Chloride (Normal Saline) 1,000 mls @ 125 mls/hr IV ASDIRECTED [facility] Last Admin: 05/10/20 03:44 Dose: 125 mls/hr Documented by: Ciprofloxacin/Dextrose 400 mg/ (Premix) 200 mls @ 200 mls/hr IV Q12H [facility] Last Admin: 05/10/20 06:30 Dose: 200 mls/hr Documented by: Ketorolac Tromethamine (Toradol) 15 mg IVPUSH Q6H PRN PRN Reason: Pain Last Admin: 05/10/20 01:31 Dose: 15 mg Documented by: Levothyroxine Sodium (Levothyroxine) 150 mcg PO [id number]@0900 [facility] Last Admin: 05/10/20 08:30 Dose: 150 mcg Documented by: Mirtazapine (Remeron) 45 mg PO BEDTIME [facility] Last Admin: 05/09/20 20:46 Dose: 45 mg Documented by: Morphine Sulfate (Morphine) 2 mg IVPUSH Q2H PRN PRN Reason: Pain Last Admin: 05/09/20 13:08 Dose: 2 mg Documented by: Nicotine (Habitrol) 14 mg TRDERM BEDTIME [facility] Last Admin: 05/09/20 20:43 Dose: 14 mg Documented by: Nitroglycerin (Nitrostat) 0.4 mg SL ASDIRECTED PRN PRN Reason: Chest Pain Ondansetron HCl (Zofran) 4 mg IV Q4H PRN PRN Reason: Nausea/Vomiting Sodium Chloride (Saline Flush) 10 ml FLUSH ASDIRECTED PRN PRN Reason: Keep Vein Open Last Admin: 05/10/20 01:30 Dose: 10 ml Documented by: Tiotropium Rembert (Spiriva Respimat) 0 gm INH DAILY [facility] Last Admin: 05/10/20 08:28 Dose: 4 gm Documented by: Trazodone HCl (Trazodone) 100 mg PO BEDTIME [facility] Last Admin: 05/09/20 20:45 Dose: 100 mg Documented by: Discontinued Medications Metronidazole 500 mg/ Premix 100 mls @ 100 mls/hr IV ONETIME ONE Stop: 05/08/20 17:11 Last Admin: 05/08/20 17:05 Dose: 100 mls/hr Documented by: Ciprofloxacin/Dextrose 400 mg/ (Premix) 200 mls @ 200 mls/hr IV ONETIME ONE Stop: 05/08/20 17:11 Last Admin: 05/08/20 18:31 Dose: 200 mls/hr Documented by: Ciprofloxacin/Dextrose 400 mg/ (Premix) 200 mls @ 200 mls/hr IV Q12H [facility] Metronidazole 500 mg/ Premix 100 mls @ 100 mls/hr IV Q8H [facility] Last Admin: 05/08/20 21:26 Dose: Not Given Documented by: Ciprofloxacin/Dextrose 400 mg/ (Premix) 200 mls @ 200 mls/hr IV Q12H [facility] Metronidazole 500 mg/ Premix 100 mls @ 100 mls/hr IV Q8H [facility] Last Admin: 05/10/20 00:52 Dose: 100 mls/hr Documented by: Influenza Virus Vaccine (Pharmacy To Dose - Influenza Vaccine) 1 each IM ONETIME ONE Stop: 05/08/20 19:59 Influenza Virus Vaccine (Fluad Quad Syringe) 60 mcg IM .ONCE ONE Stop: 05/08/20 21:01 Last Admin: 05/09/20 08:50 Dose: Not Given Documented by: Influenza Virus Vaccine (Fluzone Quad Syringe) Confirm Administered Dose 60 mcg IM .STK-MED ONE Stop: 05/09/20 08:38 Last Admin: 05/09/20 08:47 Dose: 60 mcg Documented by: Iopamidol (Isovue-370 (76%)) 100 ml IV ONETIME ONE Stop: 05/08/20 13:34 Last Admin: 05/08/20 14:26 Dose: 85 ml Documented by: Ketorolac Tromethamine (Toradol) 30 mg IVPUSH ONETIME ONE Stop: 05/08/20 11:53 Last Admin: 05/08/20 12:12 Dose: 30 mg Documented by: Ketorolac Tromethamine (Toradol) 15 mg IVPUSH NOW STA Stop: 05/08/20 15:27 Last Admin: 05/08/20 15:49 Dose: 15 mg Documented by: Mirtazapine (Remeron) 45 mg PO BEDTIME [facility] Last Admin: 05/08/20 22:49 Dose: 45 mg Documented by: Morphine Sulfate (Morphine) 2 mg IVPUSH ONETIME ONE Stop: 05/08/20 11:53 Last Admin: 05/08/20 12:13 Dose: 2 mg Documented by: Morphine Sulfate (Morphine) 2 mg IVPUSH ONETIME ONE Stop: 05/08/20 15:27 Last Admin: 05/08/20 15:57 Dose: 2 mg Documented by: Nicotine (Habitrol) 14 mg TRDERM DAILY [facility] Last Admin: 05/08/20 23:39 Dose: 14 mg Documented by: Ondansetron HCl (Zofran) 4 mg IVPUSH ONETIME ONE Stop: 05/08/20 11:53 Last Admin: 05/08/20 12:14 Dose: 4 mg Documented by: - Exam General: Alert, Oriented Lungs: Normal Respiratory Effort Sepsis Event Note - Evaluation Sepsis Screening Result: No Definite Risk - Focused Exam Vital Signs: Vital Signs Temp Pulse Resp BP Pulse Ox 05/10/20 03:42 97.6 F 76 18 112/62 89 L 05/10/20 01:00 97.6 F 70 18 119/64 89 L - Problem List Review Problem List Initiated/Reviewed/Updated: Yes - My Orders Last 24 Hours: Active Orders 24 hr Category Date Time Status Ready for Discharge [RC] PER UNIT ROUTINE Care 05/10/20 09:11 Active Full Liquid Diet [DIET] Diet 05/10/20 Breakfast Active Ketorolac [Toradol] Med 05/09/20 17:49 Active 15 mg IVPUSH Q6H PRN Levothyroxine Med 05/09/20 09:00 Active 150 mcg PO MoTuWeThFrSa@0900 Mirtazapine [Remeron] Med 05/09/20 21:00 Active 45 mg PO BEDTIME Nicotine [Habitrol] Med 05/09/20 21:00 Active 14 mg TRDERM BEDTIME Tiotropium Rembert [Spiriva Respimat] Med 05/09/20 09:00 Active 0 gm INH DAILY Resuscitation Status Routine Resus Stat 05/09/20 10:00 Ordered Medication Orders Atorvastatin Calcium (Lipitor) 5 mg PO BEDTIME [facility] Last Admin: 05/09/20 20:46 Dose: 5 mg Documented by: Admin: 05/08/20 22:48 Dose: 5 mg Documented by: CHENCHO Carbamazepine (Tegretol Tab) 600 mg PO BEDTIME [facility] Last Admin: 05/09/20 20:44 Dose: 600 mg Documented by: Admin: 05/08/20 23:05 Dose: 600 mg Documented by: CHENCHO Clonazepam (Klonopin) 0.5 mg PO BEDTIME [facility] Last Admin: 12/18/20 20:53 Dose: 0.5 mg Documented by: Admin: 05/08/20 22:49 Dose: 0.5 mg Documented by: CHENCHO Cyclobenzaprine HCl (Flexeril) 10 mg PO TID PRN PRN Reason: Pain Last Admin: 05/10/20 08:37 Dose: 10 mg Documented by: JOSE G Sodium Chloride (Normal Saline) 1,000 mls @ 999 mls/hr IV ASDIRECTED [facility] Last Admin: 05/08/20 12:14 Dose: 999 mls/hr Documented by: STEFANIA Sodium Chloride (Normal Saline) 1,000 mls @ 125 mls/hr IV ASDIRECTED [facility] Last Admin: 05/10/20 03:44 Dose: 125 mls/hr Documented by: Infusion: 05/10/20 00:15 Dose: 125 mls/hr Documented by: Admin: 05/09/20 16:15 Dose: 125 mls/hr Documented by: Infusion: 05/09/20 13:58 Dose: 125 mls/hr Documented by: Admin: 05/09/20 05:58 Dose: 125 mls/hr Documented by: Infusion: 05/09/20 05:29 Dose: 125 mls/hr Documented by: Admin: 05/08/20 21:29 Dose: 125 mls/hr Documented by: CHENCHO Ciprofloxacin/Dextrose 400 mg/ (Premix) 200 mls @ 200 mls/hr IV Q12H [facility] Last Admin: 05/10/20 06:30 Dose: 200 mls/hr Documented by: Infusion: 05/09/20 19:07 Dose: 200 mls/hr Documented by: Admin: 05/09/20 18:07 Dose: 200 mls/hr Documented by: JOSE G Infusion: 05/09/20 06:59 Dose: 200 mls/hr Documented by: JOSE G Admin: 05/09/20 05:59 Dose: 200 mls/hr Documented by: CHENCHO Ketorolac Tromethamine (Toradol) 15 mg IVPUSH Q6H PRN PRN Reason: Pain Last Admin: 05/10/20 01:31 Dose: 15 mg Documented by: Admin: 05/09/20 18:14 Dose: 15 mg Documented by: JOSE G Levothyroxine Sodium (Levothyroxine) 150 mcg PO MoTuWeThFrSa@0900 [facility] Last Admin: 05/10/20 08:30 Dose: 150 mcg Documented by: JOSE G Admin: 05/09/20 08:54 Dose: 150 mcg Documented by: JOSE G Mirtazapine (Remeron) 45 mg PO BEDTIME [facility] Last Admin: 05/09/20 20:46 Dose: 45 mg Documented by: LESLY Morphine Sulfate (Morphine) 2 mg IVPUSH Q2H PRN PRN Reason: Pain Last Admin: 05/09/20 13:08 Dose: 2 mg Documented by: JOSE G Admin: 05/09/20 05:38 Dose: 2 mg Documented by: CHENCHO Nicotine (Habitrol) 14 mg TRDERM BEDTIME [facility] Last Admin: 05/09/20 20:43 Dose: 14 mg Documented by: LESLY Nitroglycerin (Nitrostat) 0.4 mg SL ASDIRECTED PRN PRN Reason: Chest Pain Ondansetron HCl (Zofran) 4 mg IV Q4H PRN PRN Reason: Nausea/Vomiting Sodium Chloride (Saline Flush) 10 ml FLUSH ASDIRECTED PRN PRN Reason: Keep Vein Open Last Admin: 05/10/20 01:30 Dose: 10 ml Documented by: Admin: 05/08/20 15:57 Dose: 10 ml Documented by: Admin: 05/08/20 15:49 Dose: 10 ml Documented by: TIN Tiotropium Rembert (Spiriva Respimat) 0 gm INH DAILY [facility] Last Admin: 05/10/20 08:28 Dose: 4 gm Documented by: JOSE G Admin: 05/09/20 08:52 Dose: 4 gm Documented by: JOSE G Trazodone HCl (Trazodone) 100 mg PO BEDTIME [facility] Last Admin: 05/09/20 20:45 Dose: 100 mg Documented by: Admin: 05/09/20 00:07 Dose: 100 mg Documented by: CHENCHO - Assessment Assessment (Free Text/Narrative):: Small bowel obstruction with thicken wall of small bowel - improving - Plan Plan (Free Text/Narrative):: Agree with plans for discharge Soft diet with increase in PO fluids Will need Small Bowel xray in future to follow up abnormality noted on CT Scan
--- NOTE | 2020-05-12 09:04 | CONS ---
DATE OF CONSULTATION: 05/09/2020 PHYSICIAN REQUESTING CONSULT: Justin Gandara MD. HISTORY OF PRESENT ILLNESS: This 65-year-old female was admitted to the hospital yesterday with complaints of left-sided abdominal pain. She had noticed this develop the previous day and this pain was associated with some vomiting, which continued through that night and into yesterday morning. With the persistence of the pain and vomiting, she presented to the emergency room from which she was admitted. Evaluation has identified on CT scan of the abdomen several dilated loops of jejunum and proximal ileum associated with areas of thickening of the small bowel wall. Etiology for this is unclear although suggestion of Crohn's disease was made. Currently, the patient's pain has improved. She is noticing some crampy pain, but it is not constant and not as severe as before. It does remain in the left lower abdomen primarily. The patient also notes that she has been passing large amounts of flatus, which has improved her abdominal pain. PAST MEDICAL HISTORY: Does include previous surgeries including cholecystectomy, hernia repairs, tonsillectomy and section. Release of bowel obstruction in the past, she says this was performed 5 years ago, and at that time, there was no mention of any indication of Crohn's disease on bowel evaluation. She carries chronic diagnoses of COPD, GERD, arthritis, fibromyalgia. She also has a history of bipolar disorder and hypothyroidism. CURRENT MEDICATIONS: Reviewed and as in her electronic medical record. She has been started on Cipro and Flagyl which she is receiving intravenously. SOCIAL HISTORY: The patient does smoke daily. REVIEW OF SYSTEMS: System review reveals no respiratory changes or significant shortness of breath. She does have some chronic back pain and arthritis pain as well as fibromyalgia. She denies any dysuria or difficulty voiding. Bowel movements have been satisfactory in the recent past. She does have a history of colon polyps and her last colonoscopy was 2 years ago. PHYSICAL EXAMINATION: VITAL SIGNS: Temperature is 98.3, pulse 79, blood pressure is 111/61, O2 saturation 91% on room air. GENERAL: The patient is alert, adult female. She is currently in no acute distress. HEENT: Head is normocephalic. No scleral icterus. No cervical masses. HEART: Regular. LUNGS: Clear. ABDOMEN: Does demonstrate mild distention. In the upper portion of the abdomen, there is tenderness to direct palpation. In the left mid abdomen, I do not feel any abdominal masses. Surgical scars are well healed. Hernias are not identified at this time. DIAGNOSTIC DATA: Laboratory studies show elevated serum white blood cell count upon admission, but this has returned to normal today. Chemistry studies today are normal. Liver functions show normal bilirubin, slightly increased AST and alkaline phosphatase and normal amylase. IMPRESSION: 1. Thickened small bowel wall with possible bowel obstruction, which does appear to be resolving. 2. Chronic obstructive pulmonary disease. RECOMMENDATIONS: With the patient's clinical improvement, advised continued observation. She has tolerated clear liquids well tonight. Currently denies any nausea and we will order a full liquid meal for tomorrow morning. Pending patient's clinical course, the patient may need small bowel follow-through study to further define the small bowel abnormalities noted on her CT scan. /[id number] YONI/LORENZO FABIAN
--- NOTE | 2020-05-12 09:05 | DISCH ---
DISCHARGE DATE: 05/10/2020 REASON FOR ADMISSION: Colitis. DISCHARGE DIAGNOSES: 1. Abdominal pain. 2. Tobacco abuse. 3. Mild small-bowel obstruction. 4. Bipolar disorder. CONSULTATIONS: Dr. Bojorquez. BRIEF HISTORY AND HOSPITAL COURSE: A 65-year-old admitted with vomiting, abdominal pain that was severe. CT revealed some features of obstruction and maybe colitis, treated with IV antibiotics initially, improved, and we discharged her home because I find no reason for antibiotics. She is able to tolerate some fluids and a clear liquid diet. Dr. Bojorquez felt that she will need a small-bowel follow-through at some point in future. I spent more than 35 minutes in the discharge. DISCHARGE MEDICATIONS: My discharge medications followin. Protonix 40 mg a day. 2. MiraLAX 17 g at night p.r.n. 3. Bentyl 10 mg q.i.d. 4. Toradol 10 mg q.i.d. p.r.n. /[id number] GEOFF/LORENZO
== END 2020-05-10 10:50 | disposition home or self-care (01) | DRG 392 ==
LOC: FB.ED 11:28 → FB.MS 18:42 → UNDOADMIN 19:34 → FB.MS 19:34 → UNDODISIN 05-10 10:50
PROVIDERS: ADMIT Emergency Medicine; ATTEND Family Medicine
DX: N30.90 Cystitis, unspecified without hematuria (principal); K56.609 Unspecified intestinal obstruction, unspecified as to partial versus complete obstruction; K52.9 Noninfective gastroenteritis and colitis, unspecified; H54.7 Unspecified visual loss; E78.00 Pure hypercholesterolemia, unspecified; J44.9 Chronic obstructive pulmonary disease, unspecified; K21.9 Gastro-esophageal reflux disease without esophagitis; M19.90 Unspecified osteoarthritis, unspecified site; F17.200 Nicotine dependence, unspecified, uncomplicated; F31.9 Bipolar disorder, unspecified; M79.7 Fibromyalgia; E03.9 Hypothyroidism, unspecified; F17.210 Nicotine dependence, cigarettes, uncomplicated; Z98.890 Other specified postprocedural states; Z79.890 Hormone replacement therapy; Z79.899 Other long term (current) drug therapy; Z88.0 Allergy status to penicillin; Z20.828 Contact with and (suspected) exposure to other viral communicable diseases
CPT/HCPCS: 36415; 71045; 74177; 80048; 80053; 81001; 82150; 83605; 83690; 84484; 85025; 87040; 90686; 93005; 96365; 96375; 96376; 99284; 99285-25; A9270-GY; G0008; J0744; J1885; J2270; J2405; J3490; J7030; Q9967; U0002